=== PATIENT | male | born 1950 | race Caucasian/White ===

== ENCOUNTER 2020-07-22 16:58 | Emergency (ER) | payer OTHER ==
[~2020-07-22] VITALS: Ht 175.3 cm; Wt 65.8 kg
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
[2020-07-22] MEDS ORDERED: LISINOPRIL10 MG PO (17:16)
[2020-07-22 17:44] LABS: CALCIUM 7.9 mg/dL (8.5-10.1); CREATININE 0.5 mg/dL (0.6-1.3); POTASSIUM 4.1 mmol/L (3.5-5.1)
[2020-07-22 17:46] LABS: ABSOLUTE EOSINOPHILS 0.3 thou/uL (0.0-0.7); ABSOLUTE LYMPHOCYTES 1.5 thou/uL (0.8-5.3); ABSOLUTE MONOCYTES 0.9 thou/uL (0.0-1.2); ABSOLUTE NEUTROPHILS 4.7 thou/uL (1.6-8.1); BASOPHILS 0.6 %; EOSINOPHILS 3.5 %; HEMATOCRIT 30.4 % (42.0-52.0); HEMOGLOBIN 10.8 gm/dL (14.0-18.0); LYMPHOCYTES 20.5 %; MCH 33.6 pg (26.0-34.0); MCHC 35.7 g/dL (28.0-37.0); MCV 94.3 fL (80.0-100.0); MONOCYTES 11.7 %; MPV 7.4 fl. (7.2-11.1); NUCLEATED RBCS 0 /100WBC; PLATELET COUNT* 232 thou/uL (150-400); POLYS 63.7 %; RBC 3.22 mil/uL (4.50-6.00); WBC 7.3 thou/uL (4.0-11.0)
[2020-07-22 17:48] LABS: ALBUMIN 3.4 g/dL (3.4-5.0); TOTAL BILIRUBIN 0.3 mg/dL (<0.1-1.0); TOTAL PROTEIN 6.3 g/dL (6.4-8.2)
[2020-07-22 18:36] VITALS: BP 124/68
--- NOTE | 2020-07-23 13:59 | EKG ---
[place] [address] ELECTROCARDIOGRAM REPORT Name: FRANCY MULLIGAN Room: [facility]#: [id number] Admission: 07/22/20 Attend Phys: Discharge: 07/22/20 Date of : 50 Date of Service: 07/22/20 1733 Report #: [id number] THIS REPORT FOR: //name// [facility] ED Test Date: 2020-07-22 Test Time: 17:33:08 Pat Name: FRANCY MULLIGAN Department: Room: Gender: Territory Service Representative: ANA : 1950 Requested By: Bharathi Vasquez Order Number: [id number] MD: Efrain Lorenz Measurements Intervals Model Rate: 89 P: 78 AR: 147 QRS: 62 QRSD: 102 T: 64 QT: 398 QTc: 485 Interpretive Statements Sinus rhythm Nonspecific T abnrm, anterolateral leads Borderline prolonged QT interval No previous ECG available for comparison Electronically Signed On 07-23-2020 13:59:44 CDT by Erfain Lorenz [email or web address] <ELECTRONICALLY SIGNED> By: Efrain Lorenz MD, [facility] 07/23/20 1359 1733 1733 Efrain Lorenz MD, [facility] /EPI
== END 2020-07-22 18:38 | disposition home or self-care (01) ==
LOC: M.ERS 16:58
PROVIDERS: Emergency Medicine
DX: F10.129 Alcohol abuse with intoxication, unspecified (principal); F17.210 Nicotine dependence, cigarettes, uncomplicated; I10 Essential (primary) hypertension; Z79.899 Other long term (current) drug therapy; Y90.9 Presence of alcohol in blood, level not specified